=== PATIENT | female | born 1930 | race Caucasian/White ===

== ENCOUNTER → 2017-06-24 | Outpatient (CLI) | payer MEDICARE ==
[~2017-06-24] MED LIST: ACET325T21 PO; ASPI-650 PO; CARV12.52 PO; CLON0.1T PO; HYDR12.53 PO; HYDR25TA6 PO; MAGN400T36 PO; POTA10CA PO
== END ==
LOC: CVU 09:46
PROVIDERS: ATTEND Internal Medicine Cardiovascular Disease
DX: I08.2 Rheumatic disorders of both aortic and tricuspid valves (principal); I10 Essential (primary) hypertension; E78.5 Hyperlipidemia, unspecified; I71.2 Thoracic aortic aneurysm, without rupture
CPT/HCPCS: 93306

== ENCOUNTER 2017-09-29 10:50 | Emergency (ER) | payer MEDICARE ==
[~2017-09-29] VITALS: Ht 152.4 cm; Wt 75.2 kg
[2017-09-29 10:55] VITALS: BP 159/88
== END 2017-09-29 12:03 | disposition home or self-care (01) ==
LOC: ED 11:15
DX: H00.12 Chalazion right lower eyelid (principal); I10 Essential (primary) hypertension
CPT/HCPCS: 99283

== ENCOUNTER 2017-11-27 18:17 | Emergency (ER) | payer MEDICARE ==
[~2017-11-27] VITALS: Ht 152.4 cm; Wt 74.0 kg
[2017-11-27] MEDS ORDERED: AMLO5TAB2 PO (18:46)
[2017-11-27] MEDS ORDERED: AMOX-291 PO (18:46)
[2017-11-27] MEDS ORDERED: SEPTRA DS BID (18:46)
[2017-11-27] MEDS ORDERED: ALBUTEROL SULFATE 2.5 MG/3 ML ONE (19:25)
[2017-11-27] MEDS ORDERED: ALBUTEROL/IPRATROPIUM 2.5MG/0.5MG, 3 ML NPPB ONE (19:30)
[2017-11-27 20:21] VITALS: BP 165/82
== END 2017-11-27 20:46 | disposition home or self-care (01) ==
LOC: ED 20:40
DX: R05 Cough (principal); Z86.73 Personal history of transient ischemic attack (TIA), and cerebral infarction without residual deficits
CPT/HCPCS: 71046; 93005; 94640; 99284

== ENCOUNTER → 2018-02-02 | Outpatient (CLI) | payer MEDICARE ==
[~2018-02-02] MED LIST changes: +AMLO5TAB7 PO; +AMOX-291 PO; +SEPTRA DS BID
[2018-02-02 12:51] LABS: ALBUMIN 3.5 g/dL (3.4-5.0); ANION GAP 6 mmol/L (5-15); CALCIUM 9.8 mg/dL (8.5-10.1); CHLORIDE 108 mmol/L (98-107)
[2018-02-02 12:55] LABS: ALANINE AMINOTRANSFERASE 47 U/L (12-78); ALKALINE PHOSPHATASE 60 U/L (45-117); BILIRUBIN,TOTAL 1.1 mg/dL (0.2-1.0); CHOL/HDL RATIO 3.4; CHOLESTEROL, TOTAL 215 mg/dL (140-239); CREATININE 0.96 mg/dL (0.55-1.02); HDL CHOL % 30 % (28-40); HDL CHOLESTEROL (DIRECT) 64 mg/dL (40-60); LDL CHOLESTEROL,CALCULATED 135 mg/dL (54-169); LDL/HDL RATIO 2.1 (0.5-3.0); TOTAL PROTEIN 6.3 g/dL (6.4-8.2); TRIGLYCERIDES 79 mg/dL (50-200); VLDL CHOLESTEROL 16 mg/dL (0-25)
== END | disposition home or self-care (01) ==
LOC: CFH 07:49
PROVIDERS: ATTEND Internal Medicine Cardiovascular Disease
DX: I10 Essential (primary) hypertension (principal)
CPT/HCPCS: 36415; 80053; 80061